=== PATIENT | male | born 1990 | race Caucasian/White ===

== ENCOUNTER 2016-09-14 06:52 | Emergency (ER) | payer SELFPAY ==
[~2016-09-14] VITALS: Ht 180.3 cm; Wt 101.0 kg
[2016-09-14 06:55] VITALS: BP 140/81
== END 2016-09-14 10:13 | disposition left against medical advice (07) ==
LOC: ER 06:52
DX: M25.531 Pain in right wrist (principal); Z53.21 Procedure and treatment not carried out due to patient leaving prior to being seen by health care provider